=== PATIENT | male | born 1960 | race Caucasian/White ===

== ENCOUNTER 2024-03-13 06:13 | Day surgery (SDC) | payer MEDICARE ==
[2024-03-06 14:41] VITALS: BMI 23.7
[2024-03-13] MEDS ORDERED: Nitroglycerin 50 MG/250 ML BOT 250 ML ONE (06:39)
[2024-03-13] MEDS ORDERED: Adenosine 6 mg (2 mL) VIAL ONE (06:39)
[2024-03-13] MEDS ORDERED: Heparin 10,000 UNITS/ 10 ML VIAL ONE (06:39)
[2024-03-13] MEDS ORDERED: Midazolam HCl 2 mg/2 ml Vial ONE ×2 (07:13→07:53)
[2024-03-13] MEDS ORDERED: Verapamil 5 MG/2 ML VIAL ONE (07:13)
[2024-03-13] MEDS ORDERED: fentaNYL 50 mcg/mL 1 mL Vial ONE ×3 (07:13→08:15)
[2024-03-13] MEDS ORDERED: Adenosine 90 mg (30 mL) VIAL ONE (07:46)
[2024-03-13] MEDS ORDERED: TICAGRELOR 90 MG TABLET ONE (08:25)
[2024-03-13] MEDS ORDERED: Iopamidol 370 76% 100 ML VIAL ONE (10:04)
== END 2024-03-13 13:35 | disposition home or self-care (01) ==
LOC: CCL 06:13
PROVIDERS: ATTEND Internal Medicine Cardiovascular Disease
PROC: 4A023N7 Measurement of Cardiac Sampling and Pressure, Left Heart, Percutaneous Approach (ICD-10-PCS; principal; 2024-03-13)
DX: R07.9 Chest pain, unspecified (principal)
CPT/HCPCS: 85347; 93005; 93458; 93571; 93572; C1769 ×3; C1874; C1887 ×2; C1894; C9600; J0153 ×2; J1644; J2250; J3010; 92928; 93010; 99152; 99153; Q9967

== ENCOUNTER 2024-06-27 09:28 | Emergency (ER) | payer MEDICARE ==
[2024-06-27 10:18] LABS: #Basophils Less than 0.03 10x3/uL (0.0-0.2); %Basophils 0.4 % (0.0-1.0); %Eosinophils 1.4 % (0.0-10.0); %Lymphocytes 26.7 % (21.0-51.0); %Monocytes 6.8 % (0.0-10.0); %Neutrophils 64.5 % (42.0-75.0); Hematocrit 42.7 % (42.0-52.0); Hemoglobin 14.4 g/dL (14.0-18.0); Mean Corpuscular HGB CONC 33.7 g/dL (32.0-36.0); Mean Corpuscular Hemoglobin 30.8 pg (27.0-31.0); Mean Corpuscular Volume 91.4 fL (78.0-98.0); Mean Platelet Volume 10.3 fL (7.4-10.4); Platelet Count 178 10x3/uL (130-400); RBC Distribution Width 12.5 % (11.5-14.5); Red Blood Cell (RBC) Count 4.67 mill/uL (4.70-6.10)
[2024-06-27] MEDS ORDERED: Iopamidol-370 76% 500 ML MDV (1 ML CHARGE) ONE (10:21)
[2024-06-27 10:38] LABS: ALT (SGPT) 14 U/L (8-55); AST (SGOT) 16 U/L (5-34); Albumin 3.8 g/dL (3.4-4.8); Alkaline Phosphatase 89 U/L (40-110); Anion Gap 10 mmol/L (10-20); BUN (Urea Nitrogen) 15 mg/dL (8.4-25.7); Bilirubin, Total 0.6 mg/dL (0.2-1.2); Calc. Creatinine Clearance 0 mL/min (70-130); Calcium 8.6 mg/dL (7.8-10.44); Carbon Dioxide 28 mmol/L (23-31); Chloride 106 mmol/L (98-107); Estimated GFR 66; Globulin 3.2 g/dL (2.4-3.5); Glucose 87 mg/dL (80-115); Potassium 4.3 mmol/L (3.5-5.1); Sodium 140 mmol/L (136-145)
== END 2024-06-27 11:31 ==
LOC: ERS 09:28
DX: R03.0 Elevated blood-pressure reading, without diagnosis of hypertension (principal); I25.10 Atherosclerotic heart disease of native coronary artery without angina pectoris; F17.290 Nicotine dependence, other tobacco product, uncomplicated; K21.9 Gastro-esophageal reflux disease without esophagitis; E78.5 Hyperlipidemia, unspecified; Z55.6 Problems related to health literacy; Z79.899 Other long term (current) drug therapy
CPT/HCPCS: 70450; 70496; 70498; 80053; 85025; 93005